=== PATIENT | female | born 1955 | race Two or more races ===

== ENCOUNTER 2017-01-11 07:53 | Outpatient (CLI) | payer OTHER ==
[2017-01-11] VITALS (14 sets, daily range): BP systolic 86–108; BP diastolic 49–68
[~2017-01-11] VITALS: Ht 154.9 cm; Wt 56.7 kg
[2017-01-11] MEDS ORDERED: ATROVENT HFA12.9 GM IH (08:19)
[2017-01-11] MEDS ORDERED: FLUT1DIS3 IH (08:19)
[2017-01-11] MEDS ORDERED: MONT10TA9 PO (08:19)
[2017-01-11] MEDS ORDERED: CETI10TA16 PO (08:19)
[2017-01-11] MEDS ORDERED: FLUT12AE IH (08:19)
[2017-01-11] MEDS ORDERED: LEVO75TA5 PO (08:19)
[2017-01-11 08:43] LABS: BASO # 0.1 x10^3/uL (0.0-0.2); BASO % 1 % (0-3); EOS % 3 % (0-3); HEMATOCRIT 36.4 % (36.0-47.0); HEMOGLOBIN 11.7 g/dL (12.0-15.5); LYMPH # 1.3 x10^3/uL (1.0-4.8); LYMPH % 21 % (24-48); MEAN CORPUSCULAR HEMOGLOBIN 21 pg (25-35); MEAN CORPUSCULAR HGB CONC 32 g/dL (31-37); MEAN CORPUSCULAR VOLUME 66 fL (79-100); MONO % 9 % (0-9); NEUT % 65 % (31-73); PLATELET COUNT 375 x10^3/uL (140-400); RED BLOOD COUNT 5.48 x10^6/uL (3.50-5.40); RED CELL DISTRIBUTION WIDTH 15.1 % (11.5-14.5); WHITE BLOOD COUNT 6.1 x10^3/uL (4.0-11.0)
[2017-01-11 09:10] LABS: INR 0.9 (0.8-1.1)
[2017-01-11] MEDS ORDERED: LIDOCAINE 1% / SOD BICARB 8.4% 20 ML VIAL. IJ ONE ×2 (09:59→10:45)
--- NOTE | 2017-01-11 10:20 | PDOC ---
MODERATE SEDATION ASSESSMENT RISKS/ALTERNATIVES Risks/Alternatives Risks and alternatives of this type of sedation and procedure discussed with: RISK/ALTERNATIVES: Patient H & P ON CHART H & P H & P on chart and reviewed for co-morbid conditions and appropriate labs. H&P ON CHART: Yes STATUS PREG STATUS ASSESSED: N/A MEDS/ALLERGIES REVIEWED Meds/Allergies Reviewed Medications and Allergies including time and route of recently administered narcotics and sedatives. MEDS/ALLERGIES REVIEWED: Yes ASA RATING ASA RATING: II AIRWAY ASSESSMENT Airway Assessment Airway patency, oral function limitations, presence of caps, crowns, dentures, partials, and ability to extend neck assessed. AIRWAY ASSESSMENT: Yes MALLAMPATI SCORE MALLAMPATI SCORE: II PRE-SEDATION ASSESSMENT PRE-SEDATION ASSESSMENT: Yes MAURICIO MEDINA MD Jan 11, 2017 10:20
[2017-01-11] MEDS ORDERED: MIDAZOLAM HCL/PF 2 MG/2 ML VIAL. ONE ×2 (10:22→10:23)
[2017-01-11] MEDS ORDERED: fentaNYL PF VIAL 100 MCG/2 ML VIAL ONE (10:23)
--- NOTE | 2017-01-11 10:23 | PDOC1 ---
History and Physical Date of Procedure Date of Admission 01/11/[address] guided renal bx Indication Indication 61 YO female with renal failure proteinuria---renal bx requested by Nephrology Past Medical History Past Medical History See Nursing Pre procedure PMH Past Surgical History Past Surgical History See Nursing Pre procedure PSH Current Medications Current Medications Current Medications Lidocaine/Sodium Bicarbonate (Buffered Lidocaine 1%) 20 ml STK-MED ONCE IJ ; Start 01/11/17 at 09:59; Stop 01/11/17 at 10:00; Status DC Active Scripts Active Reported Advair 250-50 Diskus (Fluticasone/Salmeterol) 1 Each Disk.w.dev 1 Inh IH BID Levothyroxine Sodium 75 Mcg Tablet 75 Mcg PO DAILYAC Flovent 110MCG Hfa (Fluticasone Propionate) 12 Gm Aer.w.adap 2 Puff IH BID Atrovent Hfa (Ipratropium [place]) 12.9 Gm Hfa.aer.ad 2 Puff IH QID Cetirizine Hcl 10 Mg Tablet 1 Tab PO DAILY Montelukast Sodium Tablet (Montelukast Sodium) 10 Mg Tablet 1 Tab PO DAILY Allergies Allergies: Coded Allergies: meperidine (Verified Allergy, Intermediate, 01/11/17) sulfamethoxazole (Verified Allergy, Intermediate, 01/11/17) trimethoprim (Verified Allergy, Intermediate, 01/11/17) Physical Exam Vital Signs Vital Signs Date Time Temp Pulse Resp B/P (MAP) Pulse Ox O2 Delivery O2 Flow Rate FiO2 01/11/17 08:55 Room Air 01/11/17 08:54 98.1 73 20 97/54 (68) 100 98.1 Lungs: Clear to auscultation Heart: Regular rate Psych/Mental Status: Mental status NL Assessment Assessment 61 YO female with renal failure and proteinuria. Problems: Plan Plan Image guided renal bx, as requested by Nephrology. MAURICIO MEDINA MD Jan 11, 2017 10:23
[2017-01-11] MEDS ORDERED: MIDAZOLAM HCL/PF 2 MG/2 ML VIAL. IV ONE (10:45)
[2017-01-11] MEDS ORDERED: fentaNYL PF VIAL 100 MCG/2 ML VIAL IV ONE (10:45)
--- NOTE | 2017-01-11 11:01 | PDOC ---
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 Post-Procedure Diagnosis Post-Procedure Diagnosis Same Procedure Performed Procedure Performed CT guided bx lower pole left kidney Type of Anesthesia Type of Anesthesia Local + Mod sedation Estimated Blood Loss EBL: Minimal Specimens Specimans 1 18G core bx to path in formalin 1 18G core bx to path in Shon's fixative Condition of Patient Condition of Patient Stable. No significant post bx bleeding. Disposition Disposition [facility] from [facility] post recovery form Mod sedation, if no bleeding or other problems. F/u with Dr Mackey. Full report to follow. MAURICIO MEDINA MD Jan 11, 2017 11:01
[2017-01-11 13:08] LABS: PLT ESTIMATE ADEQUATE (ADEQUATE)
[2017-01-11 13:10] LABS: ANISOCYTOSIS SLIGHT; HYPOCHROMIA MOD; MICROCYTOSIS MOD
--- NOTE | 2017-01-12 07:15 | RAD ---
CT-guided left renal biopsy Indication: 61-year-old female with renal failure and with proteinuria. Image guided renal biopsy has been requested by nephrology. Anesthesia: 22 minutes moderate sedation was provided utilizing a total of 2 mg Versed and 100 mcg fentanyl, IV. The patient was appropriately monitored by a qualified independent observer throughout the time of moderate sedation. Consent: The procedure was explained in its entirety to the patient and/or the patient's designated small business representative by a member of the treatment team. This included a discussion of risks and benefits and acceptable alternatives to the procedure, as well as expected consequences of no treatment at all. Discussion of risks included, but was not limited to, those that are most frequent and those that are rare, but possibly severe or life-threatening, as well as the possibility of unforeseen complications. Procedure: Informed consent was obtained from the patient. She was placed prone on the CT scanner. Preliminary noncontrast CT images were obtained through kidneys. A left posterolateral skin site suitable for CT-guided biopsy of lower pole of left kidney was selected and marked. That area was prepped and draped in the usual sterile fashion. Moderate sedation was provided with IV Versed and fentanyl. Using aseptic technique, local anesthesia, and CT guidance, a 17-gauge guide needle was successfully introduced into parenchyma of lower pole of left kidney. A total of 2 18-gauge core biopsy samples were obtained. One sample was submitted in formalin to pathology. One sample was submitted in Shon's fixative to pathology. Hemostasis was achieved with autologous clot introduced through the biopsy guide needle, which was then removed. Patient tolerated the procedure well without apparent complication. Completion CT images revealed no significant postbiopsy bleeding. Impression: Successful, uneventful CT-guided biopsy lower pole left kidney, as described. PQRS Compliance Statement: One or more of the following individualized dose reduction techniques was utilized for this procedure: 1. Automated exposure control. 2. Adjustment of MA and/or KV according to patient size. 3. Iterative reconstruction technique.
== END 2017-01-11 13:50 | disposition home or self-care (01) ==
LOC: INTRAD 07:53
PROVIDERS: ATTEND Internal Medicine Nephrology
DX: N19 Unspecified kidney failure (principal)
CPT/HCPCS: 36415; 50200; 77012; 85007; 85027; 85610; 99152; J2250; J3010

== ENCOUNTER → 2017-03-14 | Outpatient (CLI) | payer OTHER ==
[2017-01-11 13:45] VITALS: BP 90/61
[~2017-03-14] MED LIST: ATROVENT HFA12.9 GM IH; CETI10TA16 PO; FLUT12AE IH; FLUT1DIS3 IH; LEVO75TA5 PO; MONT10TA9 PO
--- NOTE | 2017-03-14 17:21 | RAD ---
Skeletal survey 03/14/2017 Clinical history: Elevated serum immunoglobulin free light chains. Right arm pain. A PA digital radiograph of the chest, lateral digital radiograph of the skull, AP and lateral digital radiographs of the cervical, thoracic and lumbar spine, AP digital radiograph of the pelvis, AP digital radiographs of the left and right humerus and forearms, AP digital radiographs of the left and right femur and AP digital radiographs of the left and right tibia and fibula were obtained for a skeletal survey. No lytic or blastic lesion is seen. The lungs are clear. Degenerative changes are seen involving the mid and lower cervical spine, the mid and lower thoracic spine and the mid and lower lumbar spine. Mild S-shaped curvature of the thoracolumbar spine is seen. The visualized abdominal bowel gas pattern is nonobstructive. Impression: No lytic or blastic lesion is seen.
== END | disposition home or self-care (01) ==
LOC: RAD 15:37
PROVIDERS: ATTEND Internal Medicine Hematology & Oncology
DX: R76.8 Other specified abnormal immunological findings in serum (principal)
CPT/HCPCS: 77075

== ENCOUNTER → 2017-03-22 | Outpatient (CLI) | payer OTHER ==
[~2017-03-22] VITALS: Ht 154.9 cm; Wt 53.5 kg
[2017-03-22] VITALS (10 sets, daily range): BP systolic 81–130; BP diastolic 40–72
[~2017-03-22] MED LIST changes: +FLUMAZENIL 0.5 MG/5 ML VIAL. IV ONE; +LIDOCAINE 1% / SOD BICARB 8.4% 20 ML VIAL. IJ ONE; +LIDOCAINE 1%/EPI 1:100,000 20 ML VIAL. INJ ONE; +MIDAZOLAM HCL/PF 5 MG/5 ML VIAL. IV ONE; +MIDAZOLAM HCL/PF 5 MG/5 ML VIAL. ONE; +NALOXONE 0.4 MG/ML VIAL. ONE; +fentaNYL PF VIAL 250 MCG/5 ML VIAL IV ONE; +fentaNYL PF VIAL 250 MCG/5 ML VIAL ONE
[2017-03-22 07:41] LABS: INR 1.2 (0.8-1.1); PROTHROMBIN TIME PATIENT 14.6 SEC (11.7-14.0)
[2017-03-22 07:52] LABS: BASO % 1 % (0-3); EOS % 4 % (0-3); HEMATOCRIT 31.6 % (36.0-47.0); HEMOGLOBIN 9.7 g/dL (12.0-15.5); LYMPH # 2.1 x10^3/uL (1.0-4.8); LYMPH % 35 % (24-48); MEAN CORPUSCULAR HEMOGLOBIN 19 pg (25-35); MEAN CORPUSCULAR HGB CONC 31 g/dL (31-37); MEAN CORPUSCULAR VOLUME 63 fL (79-100); MONO % 9 % (0-9); NEUT % 51 % (31-73); PLATELET COUNT 409 x10^3/uL (140-400); RED BLOOD COUNT 5.05 x10^6/uL (3.50-5.40); RED CELL DISTRIBUTION WIDTH 16.8 % (11.5-14.5); WHITE BLOOD COUNT 5.8 x10^3/uL (4.0-11.0)
[2017-03-22 10:49] LABS: PLT ESTIMATE ADEQUATE (ADEQUATE)
[2017-03-22 10:50] LABS: HYPOCHROMIA PRESENT; MICROCYTOSIS PRESENT; TARGET CELLS PRESENT
--- NOTE | 2017-03-22 13:37 | RAD ---
CT-guided bone marrow biopsy. 03/22/2017 1:34 PM Indication: ELEVATED LIGHT CHAINS Discussion: The risks and benefits of the procedure, including but not limited to, bleeding and infection were discussed patient. Informed consent was obtained. The patient was brought to the CT scanner and placed in the prone position. A timeout procedure was performed. Merchandising Consultant CT imaging of the pelvis demonstrated left ilium amenable to bone marrow biopsy. The overlying soft tissues were prepped and draped using maximum sterile barrier technique. 1% lidocaine without epinephrine was administered for local anesthesia. Under intermittent CT guidance, an OncControl needle was advanced into the bone marrow of the left iliac crest. 2 Aspirates and 1 core biopsy samples were obtained. Samples were delivered to pathology was present at the time of procedure. The needle was removed and manual pressure held to achieve hemostasis. No immediate complications were identified. The procedure was performed under conscious sedation including continuous cardiopulmonary monitoring via dedicated sedation nurse. Sedation time: 20 minutes Impression: Successful CT-guided bone marrow biopsy of the left iliac crest . PQRS Compliance Statement: One or more of the following individualized dose reduction techniques were utilized for this examination: 1. Automated exposure control 2. Adjustment of the mA and/or kV according to patient size 3. Use of iterative reconstruction technique
== END | disposition home or self-care (01) ==
LOC: INTRAD 06:27
PROVIDERS: ATTEND Internal Medicine Hematology & Oncology
DX: R76.8 Other specified abnormal immunological findings in serum (principal); J45.909 Unspecified asthma, uncomplicated; K21.9 Gastro-esophageal reflux disease without esophagitis; E03.9 Hypothyroidism, unspecified; Z79.01 Long term (current) use of anticoagulants; Z87.39 Personal history of other diseases of the musculoskeletal system and connective tissue; Z86.39 Personal history of other endocrine, nutritional and metabolic disease; Z88.1 Allergy status to other antibiotic agents
CPT/HCPCS: 36415; 38221; 77012; 85025; 85610; 88184; 88185; 88237; 99152; G0364; J2250; J3010; J3490